=== PATIENT | female | born 1975 | race Caucasian/White ===

== ENCOUNTER → 2021-01-14 11:41 | Outpatient (CLI) | payer BC, SELFPAY ==
--- NOTE | ~2021-01-14 | MM_ITS ---
EXAMINATION: MM screening alena BI w janie HISTORY: Screening mammogram TECHNIQUE: Craniocaudal and mediolateral oblique 3-D tomosynthesis images were obtained and synthetic 2-D images were generated. Bilateral rotated lateral CC views. CAD analysis was submitted and interp reted. COMPARISON: No prior mammogram is available for comparison at this institution. BREAST PARENCHYMAL COMPOSITION: The breasts are extremely dense, which lowers the sensitivity of mamm ography. FINDINGS: There is no evidence of suspicious mass, calcification, or architectural distortion to sugg est malignancy in either breast. There has been no suspicious interval change. IMPRESSION: 1. No mammographic evidence of malignancy. 2. Recommend routine screening mammography in one year. BI-RADS Category 1: Negative Reviewed, dictated and finalized at location A.
== END ==
PROVIDERS: Visit Provider Obstetrics & Gynecology
DX: Z12.31 Encounter for screening mammogram for malignant neoplasm of breast (principal)
CPT/HCPCS: 77063; 77067

== ENCOUNTER 2022-07-05 16:47 | Inpatient (IN) | payer BC, SELFPAY ==
[2022-06-30 15:15] VITALS: BMI 24.1
--- NOTE | 2022-06-30 15:20 | PC.NURSE ---
Report to the Outpatient Waiting Room, entrance under the green pavilion located off [facility], at time 1000 on date 07/05/22. Planned Procedure Time: 1200. Time changes happen often and if your time is changed the preop area will call you the afternoon before. - You and your visitor will be asked to self-screen and do not enter if you have any COVID symptoms. - We encourage only one visitor and NO visitors under age 16 are allowed at this time. Your visitor will receive communication by the phone number that is given day of service. - The patient visitor is requested to social distance or may leave the building when not with patient due to restrictions. - A mask is OPTIONAL within the hospital. Patients may have clear liquids (water, carbonated beverages, clear teas, apple juice) until 3 hours prior to surgery with a maximum of 20 ounces. - No food from midnight until time of surgery Take the following medications with a SIP of water the morning of surgery: ESCITALOPRAM, LEVOTHYROXINE, ALPRAZOLAM IF NEEDED Medications to discontinue per physician: N/A Date to take last dose: N/A Please no make-up, nail wolof, hairspray, perfume, deodorant, or body powder the day of surgery. No jewelry (including any body piercings) or valuables the day of surgery, leave them at home. Please take a shower or bath the night before, or the morning of, surgery with an antibacterial soap. Wear comfortable, loose fitting clothing. - Jewelry must be removed prior to entering the operating room. Rings and piercings that are not removed may be cut off. - The hospital will not accept responsibility for valuables. - Please leave all valuables, including medications, at home the day of surgery. If you are going home after surgery, a licensed helper/driver must drive you home. - NO public transportation without another adult. - We recommend that an adult stay with you for 24 hours following discharge. - We also recommend that you do not drive, make important decision, drink alcoholic beverages, or take any drugs that were not prescribed by your health care provider for at least 24 hours after your discharge time. Follow any additional instructions given to you from your surgeon. If you or anyone in your household have experienced Covid symptoms in the past week, please notify your surgeon or the nurse liaison at the phone number below for possible testing. Telephone instructions given to PT - SAVANNA JASON and asked if any additional questions and then verbalized understanding. Patient advised to call surgeon office or pre surgery nurse liaison [phone] if any additional questions.
[2022-07-05] VITALS (10 sets, daily range): BP systolic 105–135; BP diastolic 58–77; PULSE 77–103; RESP 12–18; TEMP 36.2–37.2; O2SAT 96–100
--- NOTE | 2022-07-05 05:45 | PM.IMHP ---
H&P: HPI History of Present Illness Date/Time: 07/05/22 05:45 Chief Complaint: Fibroids. Narrative: 46 y/o nulligravida with heavy, painful menses. Ultrasound shows a large uterine myoma measuring 10 cm. She desires definitive management with hysterectomy. Review of Systems Review of Systems: All systems reviewed & are unremarkable except as noted in HPI and below PMFSH Past Medical History Medical History (Updated 07/05/22 @ 06:15 by Barak Serrano MD) Anxiety Hypothyroidism Infertility Surgical History Surgical History History of appendectomy History of ear surgery Family History Family History Other Hypertension Social History Social History Smoking status: Former smoker Tobacco type: cigarettes Additional smoking assessment comments: IN COLLEGE Alcohol intake: current Drinks per week: 3 Substance use: never Substance use type: does not use Living arrangements: with family Gender identity (if verbalized by the patient): Female Spiritual care concerns: No Meds Home Medications and Allergies Home Medications Medication Instructions Recorded Confirmed Type alprazolam 0.25 mg tablet 0.25 mg PO TID PRN anxiety #90 tabs 05/11/22 06/30/22 Rx escitalopram oxalate 10 mg tablet 10 mg PO DAILY #90 tabs 05/11/22 06/30/22 Rx levothyroxine 88 mcg tablet 88 mcg PO DAILY #90 tabs 05/11/22 06/30/22 Rx Allergies Allergy/AdvReac Type Severity Reaction Status Date / Time No Known Allergies Allergy Unknown Unverified 06/30/22 15:14 Exam Const: Orientation/consciousness: patient oriented x3 Other: Well-developed, well-nourished female in no acute distress. Neck: Thyroid: thyroid normal Lymphatic: no lymphadenopathy noted (in neck, axilla or inguinal nodes) Resp: Effort & Inspection: normal respiratory effort Auscultation: clear to auscultation bilaterally Cardio: Rate: regular rate Rhythm: regular rhythm Heart sounds: S1 normal heart sound present and S2 normal heart sound present GI: Other: ABD: Soft, nontender, nondistended. Central pelvic mass palpated, consistent with 12 weeks gestational size. No guarding or rebound tenderness. No hepatosplenomegaly. : General: Yes no CVA tenderness Other: External genitalia: normal female hair distribution, without lesion. Urethral meatus: no lesion, non prolapsed. Bladder: no mass, nontender Vagina: well-estrogenized, without lesion or discharge. No cystocele or rectocele. Cervix: no lesion or discharge. Uterus: large, freely mobile, nontender Adnexa: no mass or tenderness. Anus/perineum: no lesions, nontender Back/Spine/Pelvis: Back: no CVA tenderness Skin: General skin exam: normal color and no rashes or lesions noted Neuro: General: patient oriented x3 Extrem: Other: Extremities: nontender with no edema Psych: Mental Status: mental status grossly normal Affect: normal affect Assessment and Plan Assessment and plan (1) Fibroid uterus: Code(s): D25.9 - Leiomyoma of uterus, unspecified Status: Acute Assessment and Plan: A: Large, symptomatic fibroid uterus. P: Reviewed medical as well as surgical treatment options. She desires definitive management with hysterectomy. Specifically, I have offered her robotic assisted total vaginal hysterectomy with bilateral salpingectomies. She understands risks of surgery to include risks of anesthesia, risks of pain, infection, bleeding, blood products, thromboembolic phenomena and damage to adjacent structures such as bowel, bladder, ureters, blood vessels and nerves. She understands hysterectomy will render her permanently sterile. We plan to leave the ovaries in situ. She understands all these risks and elects to proceed with surgery. (2) Menorrhagia: Code(s): N92.0 - Exces
[2022-07-05] MEDS: ACETAMINOPHEN 500 MG TABLET 1000 MG PO (10:30)
[2022-07-05] MEDS: LACTATED RINGERS 1,000 ML 30 ML IV CONT ×2 (10:40→15:22)
[2022-07-05] MEDS: KETOROLAC 15 MG/ML VIAL (*BKC) IV PUSH (11:13)
--- NOTE | 2022-07-05 11:38 | WPDHPUPDATE1 ---
History and Physical Update Update Date/Time: 07/05/22 11:38 History and Physical has been reviewed, including an updated exam of the patient. There are NO changes in the patient's condition. Risks, benefits, and alternatives have been discussed and questions answered. Patient agrees to proceed with procedure.
--- NOTE | 2022-07-05 11:41 | P.PNAN_ITS ---
Anes - Initial Pre Proc Eval Procedure: Operation Date: 07/05/22 12:00 Proposed Procedures p Robotic Assisted Total Vaginal Hysterectomy with Bilateral Salpingectomy - Barak Serrano MD Date/Time: 07/05/22 11:41 Surgeon: Barak Serrano MD Pre Op Diagnosis: enlg uterus, fibroid, pelvic pain, irr. bleeding Patient Data Age: 46 Gender: F Height: 1.73 m Weight: 70.3 kg Last Vital Signs Temp 97.2 F L 07/05/22 10:46 Pulse 77 07/05/22 10:46 Resp 16 07/05/22 10:46 BP 135/77 07/05/22 10:46 Pulse Ox 100 07/05/22 10:46 O2 Del Method Room Air 07/05/22 10:46 Allergies Allergy/AdvReac Type Severity Reaction Status Date / Time No Known Allergies Allergy Unknown Unverified 06/30/22 15:14 Home Medications Medication Instructions Recorded Confirmed Type alprazolam 0.25 mg tablet 0.25 mg PO TID PRN anxiety #90 tabs 05/11/22 06/30/22 Rx escitalopram oxalate 10 mg tablet 10 mg PO DAILY #90 tabs 05/11/22 06/30/22 Rx levothyroxine 88 mcg tablet 88 mcg PO DAILY #90 tabs 05/11/22 06/30/22 Rx Patient hx anesthesia problems: none Family hx anesthesia problems: none Results Review: All pre-operative results and documents have been reviewed as part of the pre- operative evaluation. [facility] Past Medical History Medical History (Updated 07/05/22 @ 06:15 by Barak Serrano MD) Anxiety Hypothyroidism Infertility Surgical History Surgical History History of appendectomy History of ear surgery Family History Family History Other Hypertension Social History Social History Smoking status: Former smoker Tobacco type: cigarettes Additional smoking assessment comments: IN COLLEGE Alcohol intake: current Drinks per week: 3 Substance use: never Substance use type: does not use Living arrangements: with family Gender identity (if verbalized by the patient): Female Spiritual care concerns: No Anes - Eval Final PreProcedure Day of Procedure 07/05/22 11:41 Patient weight: normal Heart: regular rate and rhythm Lungs: clear to auscultation Airway: Mallampati scale class II Neurological: alert and oriented Last oral intake: >/= 8 hours ASA classification: II Emergent: no Anesthetic plan: proceed Anesthesia type and monitoring: general and standard monitoring Results Review: All pre-operative results and documents have been reviewed as part of the pre- operative evaluation. Informed Consent: The patient's anesthetic plan and its attendant risks and benefits were discussed with the patient/family/POA. Questions were solicited and answers provided to the satisfaction of the patient/family/POA.
[2022-07-05] MEDS: SCOPOLAMINE 1.5 MG PATCH TRANSDERM (11:59)
[2022-07-05] MEDS: ceFAZolin 2 GM/D5W 50 ML 2 GM/50 ML BAG IVPB (12:15)
--- NOTE | 2022-07-05 14:53 | W.PM.PROC2 ---
Procedure Note - Detailed Date of Procedure 07/05/22 Pre-op Diagnosis Fibroid uterus Menorrhagia Dysmenorrhea Post-op Diagnosis Same Procedure Performed Attempted robotic assisted TVHBS Conversion to laparotomy Supracervical hysterectomy with bilateral salpingectomies Surgeon Barak Serrano MD Anesthesia General Findings Large, fibroid uterus. Weight 833g. Bilateral tubes and ovaries unremarkable. Description of Procedure The patient was taken to the operating room where general endotracheal anesthesia was administered. She was prepared and draped in the usual sterile fashion in the dorsal lithotomy position. The bladder was drained with Shea catheter. The cervix was visualized and the anterior lip was grasped using a single-tooth tenaculum. The cervix was gently dilated using Hegar dilators. The AVANI 2 uterine manipulator was then placed and the tenaculum was removed. Gloves were changed and attention was turned to the abdomen. A supraumbilical skin incision was made with the scalpel. The Veress needle was advanced and pneumoperitoneum was administered using carbon dioxide gas. The bladeless trocar was then advanced. Intraperitoneal placement was confirmed using the laparoscope. Lateral ports and an assistant professor nurse education port were all placed using bladeless trocars under direct laparoscopic visualization. She was placed in Trendelenburg position and the patient cart was docked. I assumed the console. The ureters were visualized bilaterally. The round ligament on the right was divided. The Fallopian tube was dissected off the ovary and the uteroovarian ligament divided. The broad ligament was divided. The left side was similarly dissected. At this point, the size of the uterus was greatly hindering visualization. The uterus was not mobile, as it filled the entire pelvis. Attempts were made to core out some myomata, but these proved unsuccessful. The decision was made to convert to laparotomy. The patient cart was undocked and the trocars removed. The vaginal instrumentation was withdrawn. A Pfannenstiel skin incision was made and carried through to the underlying layer of the fascia. The fascia was incised in the midline and the incision was extended laterally. The fascia was dissected free of the underlying rectus muscles. The rectus muscles were in the midline. The peritoneum was identified, tented up and entered sharply. The peritoneal incision was extended superiorly and inferiorly with good visualization of the bladder. A Derby retractor was placed and the bowel packed away with moist laparotomy sponges. The uterus was cored several times, finally reaching the level of the internal cervical os. The uterus was amputated from the cervix, and the specimen passed off to be sent to pathology. The cervix was inspected and the decision made not to remove it. The cervical stump was oversewn with 0-vicryl in running, locked fashion. The pelvis was irrigated copiously with warmed normal saline. Pedicles were inspected, and rigorous hemostasis was assured. The fascial layer was reapproximated using 0 Vicryl in a running fashion. The skin was closed with a running, subcuticular stitch of 4 0 Vicryl. Laparoscopic port sites also reapproximated with interrupted subcuticular sutures of the same material. Dermaflex was applied externally. Sponge, lap, needle and instrument counts were correct. The patient was taken to the recovery room in stable condition. I was present and scrubbed the entire procedure. Implants None Estimated Blood Loss 450 Drains Yes (Shea) Packing No Pathology Yes (Uterus and bilateral Fallopian tubes.) Complications None Condition Stable Disposition PACU
--- NOTE | 2022-07-05 14:54 | SUR.OPER ---
1400 open BOLIVAR with BSO. EBL 450 Urine 250 clear yellow
[2022-07-05] MEDS: fentaNYL CITRATE INJ (*CRX) 100 MCG/2 ML VIAL 25 MCG IV PUSH ×8 (15:40→16:36)
[2022-07-05] MEDS: MORPHINE SULFATE (*CRX) 4 MG/ML INJ IV PUSH (17:13)
[2022-07-05] MEDS: DEXTROSE 5%/0.45% SOD CHL 1,000 ML 125 ML IV CONT (17:14)
--- NOTE | 2022-07-05 17:28 | OBPPTRN ---
[id number] Patient transferred to post room #283 via bed. Support person present. Oriented to unit, room, information board, rooming in, admission packet and security measures. Patient verbalizes understanding.
[2022-07-05] MEDS: HYDROcodone/acetaminophen (*CRX) 10-325 MG TABLET 1 TAB PO (21:00)
[2022-07-05] MEDS: ALPRAZolam (*CRX) 0.25 MG TABLET PO (21:01)
[2022-07-05] MEDS: SIMETHICONE 80 MG TAB.CHEW PO (21:04)
[2022-07-05] MEDS: ENOXAPARIN 40 MG/0.4 ML SYRINGE SUB-Q (21:21)
[2022-07-06] VITALS (7 sets, daily range): BP systolic 102–112; BP diastolic 55–68; PULSE 80–95; RESP 16–18; TEMP 36.5–37.4; O2SAT 96–98
[2022-07-06] MEDS: HYDROcodone/acetaminophen (*CRX) 10-325 MG TABLET 1 TAB PO ×2 (02:08→09:12)
[2022-07-06] MEDS: SIMETHICONE 80 MG TAB.CHEW PO ×2 (02:09→09:09)
[2022-07-06 05:42] LABS: Basophils Percent Auto 0.2 % (0.2-1.2); Hematocrit 24.2 % (37.0-47.0); Hemoglobin 7.5 g/dL (12.0-15.0); Immature Granulocyte Absolute 0.03 K/mm3 (0.00-0.031); Immature Granulocyte Percent A 0.3 % (0-0.5); Lymphocytes Absolute Auto 0.75 K/mm3 (0.9-3.2); Lymphocytes Percent Auto 8.3 % (18.3-44.2); Mean Corpuscular Hemoglobin 26.3 pg (26-34); Mean Corpuscular Volume 84.9 fl (80-100); Mean Platelet Volume 9.4 fl (7.4-10.4); Monocytes Absolute Auto 0.9 K/mm3 (0.1-0.6); Monocytes Percent Auto 9.5 % (2.6-8.5); Neutrophils Absolute Auto 7.4 K/mm3 (1.3-6.7); Neutrophils Percent Auto 81.7 % (45.5-73.1); Platelet Count Result 252 k/mm3 (150-375); Red Blood Count 2.85 M/mm3 (4.2-5.4); Red Cell Distribution Width 14.7 % (11.5-14.5); White Blood Count 9.1 K/mm3 (4.5-10.0)
[2022-07-06] MEDS: LEVOTHYROXINE SODIUM 88 MCG TABLET PO (07:27)
--- NOTE | 2022-07-06 07:40 | WPDANESPN ---
Anes - Prog Note Post-Op Date/Time: 07/06/22 07:40 Vital Signs: Last Vital Signs Temp 37.2 C 07/06/22 05:10 Pulse 95 07/06/22 05:10 Resp 16 07/06/22 05:10 BP 102/61 07/06/22 05:10 Pulse Ox 97 07/06/22 05:10 O2 Del Method Room Air 07/06/22 05:10 O2 Flow Rate 6 07/05/22 15:50 Pain Score (VAS): 2 I/O: Intake & Output 07/05/22 07/05/22 07/06/22 15:59 23:59 07:59 Intake Total 50 250 1600 Output Total 160 700 Balance 50 90 900 Laboratory Tests 07/06/22 05:32 07/05/22 07/06/22 10:32 05:32 WBC 9.1 RBC 2.85 L Hgb 7.5 L Hct 24.2 L MCV 84.9 MCH 26.3 MCHC 31.0 L RDW 14.7 H Plt Count 252 MPV 9.4 Immature Gran % (Auto) 0.3 Neut % (Auto) 81.7 H Lymph % (Auto) 8.3 L [place] % (Auto) 9.5 H Eos % (Auto) 0.0 Baso % (Auto) 0.2 Lymph # (Auto) 0.75 L [place] # (Auto) 0.9 H Eos # (Auto) 0.0 Baso # (Auto) 0.0 Abs Immat Gran (auto) 0.03 Absolute Neuts (auto) 7.4 H Absolute Nucleated RBC 0.0 Nucleated RBC % 0.0 Blood Type O Negative Antibody Screen Negative Patient Feedback: Patient satisfied with anesthetic care.
[2022-07-06] MEDS: ESCITALOPRAM OXALATE 10 MG TABLET PO (09:09)
--- NOTE | 2022-07-06 12:00 | PM.GYNPNOP ---
SOCIAL INSURANCE ADMINISTRATOR - A/P Assessment and plan (1) Dysmenorrhea: Code(s): N94.6 - Dysmenorrhea, unspecified Status: Acute (2) Menorrhagia: Code(s): N92.0 - Excessive and frequent menstruation with regular cycle Status: Acute (3) Fibroid uterus: Code(s): D25.9 - Leiomyoma of uterus, unspecified Status: Acute Assessment and Plan: A: POD#1, doing well. P: Reviewed intraoperative and postoperative course. Plan home tomorrow to f/u office 2 weeks. Postoperative Procedures: Procedures Operation Date: 07/05/22 12:00 Actual Procedure Side Surgeon p Attempted Robotic Assisted Total Vaginal Hysterectomy with Bilateral Salpingectomy Converted to Open Supracervical Hysterectomy with Bilateral Salpingectomy Bilateral Barak Serrano MD Postoperative day: 1 Postoperative plan: routine post-op care Time Spent With Patient Time with patient: less than 15 minutes SOCIAL INSURANCE ADMINISTRATOR- PN:Subj Post-Op Subjective Date/time seen: 07/06/22 0925 Interval history: Pain OK. Tolerating diet. Voiding. Exam Narrative: AVSS I/O OK ABD soft, nontender. Incisions c/d/i. EXT nontender SOCIAL INSURANCE ADMINISTRATOR - PN: Obj Data Vital Signs Vital Signs: Vital Signs - 24 hr 07/05/22 15:21 07/05/22 15:36 07/05/22 15:50 Temperature Pulse Rate 103 H 89 80 Respiratory Rate 15 14 13 Blood Pressure 119/60 115/60 123/62 Pulse Oximetry 100 100 100 Oxygen Delivery Simple Face Mask Simple Face Mask Simple Face Mask Oxygen Flow Rate 6 6 6 07/05/22 16:05 07/05/22 16:20 07/05/22 16:37 Temperature Pulse Rate 83 88 85 Respiratory Rate 13 12 13 Blood Pressure 122/58 L 118/59 L 112/59 L Pulse Oximetry 98 98 96 Oxygen Delivery Room Air Room Air Room Air Oxygen Flow Rate 07/05/22 17:13 07/05/22 17:13 07/05/22 21:13 Temperature 36.6 C Pulse Rate 85 96 Respiratory Rate 16 18 Blood Pressure 105/59 L Pulse Oximetry 99 99 Oxygen Delivery Room Air Room Air Oxygen Flow Rate 07/05/22 21:13 07/06/22 01:56 07/06/22 01:56 Temperature 36.9 C 37.3 C Pulse Rate 96 86 86 Respiratory Rate 18 18 18 Blood Pressure 125/68 112/68 Pulse Oximetry 99 98 98 Oxygen Delivery Room Air Oxygen Flow Rate 07/06/22 05:10 07/06/22 05:10 07/05/22 22:00 Temperature 37.2 C 37.2 C Pulse Rate 95 95 Respiratory Rate 16 16 Blood Pressure 102/61 Pulse Oximetry 97 97 Oxygen Delivery Room Air Oxygen Flow Rate 07/06/22 03:08 07/06/22 08:35 07/06/22 09:12 Temperature 37.2 C 37.4 C Pulse Rate 87 Respiratory Rate 16 Blood Pressure 103/55 L Pulse Oximetry 97 Oxygen Delivery Room Air Oxygen Flow Rate Intake/Output Intake/Output: Intake & Output 07/03/22 07/04/22 07/05/22 07/06/22 23:59 23:59 23:59 23:59 Intake Total 300 1600 Output Total 160 700 Balance 140 900 Meds/Results Medications: Active Medications Generic Name Dose Route Start Last Admin Trade Name Freq PRN Reason Stop Dose Admin Hydrocodone Bitart/Acetaminophen 1 tab 07/05/22 16:47 Hydrocodone/Acetaminophen (*Crx) 5-325 Mg Tablet PO Q3H PRN Pain Rated 5 or Less Hydrocodone Bitart/Acetaminophen 1 tab 07/05/22 16:47 07/06/22 09:12 Hydrocodone/Acetaminophen (*Crx) 10-325 Mg Tablet PO 1 tab Q3H PRN Administration Pain Rated 6 or Greater Alprazolam 0.25 mg 07/05/22 16:47 07/05/22 21:01 Alprazolam (*Crx) 0.25 Mg Tablet PO 0.25 mg TID PRN Administration anxiety Enoxaparin Sodium 40 mg 07/05/22 21:00 07/05/22 21:21 Enoxaparin 40 Mg/0.4 Ml Syringe SUB-Q 40 mg HS EMERALD Administration Escitalopram Oxalate 10 mg 07/06/22 09:00 07/06/22 09:09 Escitalopram Oxalate 10 Mg Tablet PO 10 mg DAILY EMERALD Administration Ibuprofen 600 mg 07/05/22 16:47 Ibuprofen 600 Mg Tablet PO Q6H PRN Cramping Ketorolac Tromethamine 30 mg 07/05/22 16:47 Ketorolac 30 Mg/Ml Vial (*Bkc) IV PUSH 11/21/22 16:46 Q6H PRN Pain Rated 4-6 Levothyroxine Sodi
--- NOTE | 2022-07-06 12:06 | PM.DS ---
DS: Admitting Diagnosis Discharge Date 07/07/22 Admitting Diagnosis Symptomatic fibroid uterus DS: Discharge Diagnosis Discharge Diagnosis (1) Dysmenorrhea: Code(s): N94.6 - Dysmenorrhea, unspecified Status: Acute (2) Menorrhagia: Code(s): N92.0 - Excessive and frequent menstruation with regular cycle Status: Acute (3) Fibroid uterus: Code(s): D25.9 - Leiomyoma of uterus, unspecified Status: Acute DS: Summary Hospital Course Hospital Course: She was admitted on the date of scheduled surgery. Attempted robotic TVHBS was converted to abdominal supracervical hysterectomy with bilateral salpingectomies. She did well postoperatively and was able to go home on POD#2. Time Spent with Patient Time attestation: Total time spent providing and/or coordinating discharge services: DS: Data Data Completed and Pending Pending studies at discharge: Pending at discharge 07/05/22 15:20 Surgical [PTH] Routine Labs on day of discharge: Labs from last 24 hours 07/06/22 05:32 WBC 9.1 RBC 2.85 L Hgb 7.5 L Hct 24.2 L MCV 84.9 MCH 26.3 MCHC 31.0 L RDW 14.7 H Plt Count 252 MPV 9.4 Immature Gran % (Auto) 0.3 Neut % (Auto) 81.7 H Lymph % (Auto) 8.3 L [place] % (Auto) 9.5 H Eos % (Auto) 0.0 Baso % (Auto) 0.2 Lymph # (Auto) 0.75 L [place] # (Auto) 0.9 H Eos # (Auto) 0.0 Baso # (Auto) 0.0 Abs Immat Gran (auto) 0.03 Absolute Neuts (auto) 7.4 H Absolute Nucleated RBC 0.0 Nucleated RBC % 0.0 Discharge Plan Discharge Attending physician on discharge: Barak Serrano Discharging Clinician: Barak Serrano Patient Disposition: Home, Self-Care Activity: may shower, may drive after 2 weeks and pelvic rest Diet: regular Wound Care Instructions: incision open to air Discharge Instructions: Remove the Scopolamine patch that was placed behind your left ear in 72 hours or less. Wash your hands after touching. Some Complications to Watch for: ? Excessive incisional or vaginal drainage (more than one pad an hour). Additional Instructions: ? Expect some vaginal spotting for 2-4 days. ? Nothing vaginally (i.e. douching, intercourse, tampons) until follow up visit. Skin Adhesive Care Skin adhesive is medical glue used to close wounds. It is a substitute for barb and stitches. Skin adhesive wound closures take less time and do not require anesthesia. You have less pain and a lower risk of infection than with barb or stitches. Skin adhesive will fall off after the wound is healed. Discharge instructions: Keep wound clean and dry. You can shower 24 hours after adhesive is applied but do not soak in bath or hot tub until wound is healed or provider approves. Do not pick or scrub your wound or the adhesive. This can make your wound reopen. ?Do not apply ointments to your wound. These include antibiotic or other ointments that would contain petroleum jelly. These products will remove skin adhesive and reopen the wound. Contact your provider if you have a fever, your wound is red and warm to touch or have questions about your condition or care. Seek care immediately if your wound is draining fluid or open. Stand Alone Forms: General Discharge Instructions Follow-up/Referrals: Barak Serrano MD [Physician] - Discharge Medications: New hydrocodone-acetaminophen 5-325 mg tablet 1 - 2 tablet PO Q6H PRN (Reason: pain) Qty: 30 0RF ferrous sulfate 325 mg (65 mg iron) tablet 325 mg PO DAILY Qty: 30 0RF Continued alprazolam 0.25 mg tablet 0.25 mg PO TID PRN (Reason: anxiety) Qty: 90 0RF Rx Instructions: 1-2 tabs PO TID prn escitalopram oxalate 10 mg tablet 10 mg PO DAILY Qty: 90 1RF levothyroxine 88 mcg tablet 88 mcg PO DAILY Qty: 90 1RF Date of admission: 07/05/22 16:47 Primary Care Provider: Debbie Castillo Admitting Provider: Barak Serrano Attending physician on admission: Topher Post
[2022-07-06] MEDS: HYDROcodone/acetaminophen (*CRX) 5-325 MG TABLET 1 TAB PO ×2 (14:26→21:35)
[2022-07-06] MEDS: IBUPROFEN 600 MG TABLET PO ×2 (14:26→21:34)
[2022-07-06] MEDS: ENOXAPARIN 40 MG/0.4 ML SYRINGE SUB-Q (21:36)
[2022-07-07] MEDS: HYDROcodone/acetaminophen (*CRX) 5-325 MG TABLET 1 TAB PO (05:37)
[2022-07-07] MEDS: IBUPROFEN 600 MG TABLET PO (05:38)
[2022-07-07] MEDS: LEVOTHYROXINE SODIUM 88 MCG TABLET PO (05:39)
--- NOTE | 2022-07-07 07:37 | PM.GYNPNOP ---
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 Postoperative Procedures: Procedures Operation Date: 07/05/22 12:00 Actual Procedure Side Surgeon p Attempted Robotic Assisted Total Vaginal Hysterectomy with Bilateral Salpingectomy Converted to Open Total Abdominal Hysterectomy with Bilateral Salpingectomy Bilateral Barak Serrano MD Postoperative day: 2 Postoperative status: doing well Postoperative plan: routine post-op care and discharge Time Spent With Patient Time: Total time spent is greater than 50% in coordination of care (as documented) at patient's floor/unit and/or counseling patient: Time with patient: less than 15 minutes GRINDING SUPERVISOR- PN:Subj Post-Op Subjective Date/time seen: 07/07/22 07:37 Interval history: Pain OK. Tolerating diet. Voiding. Subjective: patient reports feeling better, patient has no complaints, patient desires discharge, pain is well controlled and patient is tolerating oral intake Exam Const: General: cooperative, healthy appearing and comfortable Nutritional Appearance: average body habitus Orientation/consciousness: oriented to person, oriented to place and oriented to time HENMT: Head: normal to inspection Resp: Effort & Inspection: normal respiratory effort GI: Inspection: normal to inspection and incision (Clean dry and intact) GRINDING SUPERVISOR - PN: Obj Data Vital Signs Vital Signs: Vital Signs - 24 hr 07/06/22 08:35 07/06/22 09:12 07/06/22 16:42 Temperature 99.4 F 97.7 F Pulse Rate 87 80 Respiratory Rate 16 16 Blood Pressure 103/55 L 107/57 L Pulse Oximetry 97 97 Oxygen Delivery Room Air 07/06/22 19:50 07/06/22 19:50 07/06/22 22:34 Temperature 99.0 F 99.0 F Pulse Rate 82 82 Respiratory Rate 16 16 Blood Pressure 107/63 Pulse Oximetry 96 96 Oxygen Delivery Room Air Intake/Output Intake/Output: Intake & Output 07/04/22 07/05/22 07/06/22 07/07/22 23:59 23:59 23:59 23:59 Intake Total 300 2500 Output Total 160 1150 Balance 140 1350 Meds/Results Medications: Active Medications Generic Name Dose Route Start Last Admin Trade Name Freq PRN Reason Stop Dose Admin Hydrocodone Bitart/Acetaminophen 1 tab 07/05/22 16:47 07/07/22 05:37 Hydrocodone/Acetaminophen (*Crx) 5-325 Mg Tablet PO 1 tab Q3H PRN Administration Pain Rated 5 or Less Hydrocodone Bitart/Acetaminophen 1 tab 07/05/22 16:47 07/06/22 09:12 Hydrocodone/Acetaminophen (*Crx) 10-325 Mg Tablet PO 1 tab Q3H PRN Administration Pain Rated 6 or Greater Alprazolam 0.25 mg 07/05/22 16:47 07/05/22 21:01 Alprazolam (*Crx) 0.25 Mg Tablet PO 0.25 mg TID PRN Administration anxiety Enoxaparin Sodium 40 mg 07/05/22 21:00 07/06/22 21:36 Enoxaparin 40 Mg/0.4 Ml Syringe SUB-Q 40 mg HS EMERALD Administration Escitalopram Oxalate 10 mg 07/06/22 09:00 07/06/22 09:09 Escitalopram Oxalate 10 Mg Tablet PO 10 mg DAILY EMERALD Administration Ibuprofen 600 mg 07/05/22 16:47 07/07/22 05:38 Ibuprofen 600 Mg Tablet PO 600 mg Q6H PRN Administration Cramping Ketorolac Tromethamine 30 mg 07/05/22 16:47 Ketorolac 30 Mg/Ml Vial (*Bkc) IV PUSH 07/10/22 16:46 Q6H PRN Pain Rated 4-6 Levothyroxine Sodium 88 mcg 07/06/22 06:30 07/07/22 05:39 Levothyroxine Sodium 88 Mcg Tablet PO 88 mcg DAILY@0630 EMERALD Administration Metoclopramide HCl 10 mg 07/05/22 16:47 Metoclopramide Hcl Inj 10 Mg/2 Ml Vial IV PUSH Q6H PRN Nausea Morphine Sulfate 4 mg 07/05/22 16:47 07/05/22 17:13 Morphine Sulfate (*Crx) 4 Mg/Ml Inj IV PUSH 4 mg Q4H PRN Administration Pain Rated 7-10 Naloxone HCl 0.1 mg 07/05/22 16:47 Naloxone Hcl 0.4 Mg/Ml Vial IV PUSH Q2M PRN Respiratory rate less than 10 Ondansetron HCl 4 mg 07/05/22 16:47 Ondansetron Inj 4 Mg/2 Ml Vial IV PUSH Q6H PRN Nausea Simethicone 80 mg 07/05/22 16:47 07/06/22 09:09 Simethicone 80 Mg Tab.Chew PO 80 mg Q2H PRN Administration Gas
[2022-07-07] MEDS: ESCITALOPRAM OXALATE 10 MG TABLET PO (08:56)
[2022-07-07 09:00] VITALS: BP 117/63; PULSE 82; RESP 18; TEMP 36.8; O2SAT 98
== END 2022-07-07 10:08 | disposition home or self-care (01) | DRG 743 ==
LOC: ANHOB2 16:51
PROVIDERS: Admitting Provider Obstetrics & Gynecology; PCP Physician Assistant Medical; Visit Provider Obstetrics & Gynecology
PROC: 0UT90ZL Resection of Uterus, Supracervical, Open Approach (ICD-10-PCS; principal; 2022-07-05 12:00)
DX: D25.9 Leiomyoma of uterus, unspecified (principal); N94.6 Dysmenorrhea, unspecified; N92.0 Excessive and frequent menstruation with regular cycle; E03.9 Hypothyroidism, unspecified; F41.9 Anxiety disorder, unspecified; Z90.49 Acquired absence of other specified parts of digestive tract; Z87.891 Personal history of nicotine dependence
CPT/HCPCS: 36415; 85025; 86850; 86900; 86901; 88307; A9270; J0330; J0360; J0690; J1100; J1170; J1650; J1885; J2250; J2270; J2370; J2405; J2704; J2710; J3010; J7030; J7120

== ENCOUNTER 2025-07-22 10:30 | Outpatient (CLI) | payer BC, SELFPAY ==
--- NOTE | ~2025-07-22 | MM_ITS ---
EXAMINATION: MM screening alena BI w janie HISTORY: Screening TECHNIQUE: Craniocaudal and mediolateral oblique 3-D tomosynthesis images were obtained and synthetic 2-D images were generated. CAD analysis was submitted and interpreted. COMPARISON: 01/14/2021 BREAST PARENCHYMAL COMPOSITION: Dense: The breasts are extremely dense, which lowers the sensitivity of mammography. FINDINGS: There is no evidence of suspicious mass, calcification, or architectural distortion to suggest malignancy in either breast. There has been no suspicious interval change. IMPRESSION: 1. No mammographic evidence of malignancy. 2. Recommend routine screening mammography in one year. BI-RADS Category 1: Negative Reviewed, dictated and finalized at location I. [employer] ANA[employer]
== END 2025-07-22 10:31 | disposition home or self-care (01) ==
LOC: MICIMG 10:30
PROVIDERS: PCP Physician Assistant Medical; Visit Provider Physician Assistant Medical
DX: Z12.31 Encounter for screening mammogram for malignant neoplasm of breast (principal)
CPT/HCPCS: 77063; 77067